=== PATIENT | female | born 1990 | race Caucasian/White ===

== ENCOUNTER 2016-04-10 14:09 | Outpatient (CLI) | payer OTHER ==
[~2016-04-10] VITALS: Ht 165.1 cm; Wt 107.5 kg
--- NOTE | 2016-04-10 15:27 | RADRPT ---
PROCEDURE: US OB biophysical profile. CLINICAL INDICATION: evaluation TECHNIQUE: Multiple sonographic images of the pelvis were obtained. The images were reviewed on a PACS workstation. COMPARISON: No prior studies are available for comparison. FINDINGS: There is a single viable intrauterine gestation. Cardiac activity is present with 157 beats per min tammy. There is a vertex presentation. The placenta is fundal and to the right in location. There is no evidence of placental abruption. There is a normal amount of amniotic fluid with an CHAPARRITA = 11.2 cm. Biophysical profile: movement 2/2 tone 2/2. breathing 2/2 CHAPARRITA 2/2 Total 09/18 RPTAT: AA . IMPRESSION: Normal biophysical profile. Normal CHAPARRITA. Physician Angella Date Time Electronically viewed and signed by Physician Angella on 04/10/2016 15:27 /
[2016-04-10 15:31] LABS: ADD SCAN DIFF NO
[2016-04-10 15:33] LABS: BASOPHILS % 0.3 % (0.0-2.0); EOSINOPHILS # 0.1 10^3/ul (0.0-0.5); EOSINOPHILS % 0.5 % (0.0-7.0); HEMATOCRIT 33.1 % (37.0-47.0); HEMOGLOBIN 10.7 g/dl (12.0-16.0); LYMPHOCYTES # 1.9 10^3/ul (0.8-2.9); MEAN CORPUSCULAR HEMOGLOBIN 26.9 pg (29.0-33.0); MEAN CORPUSCULAR HGB CONC 32.3 g/dl (32.0-37.0); MEAN CORPUSCULAR VOLUME 83.2 fl (82.0-101.0); MEAN PLATELET VOLUME 11.4 fl (7.4-10.4); MONOCYTE # 0.5 10^3/ul (0.3-0.9); MONOCYTES % 4.8 % (0.0-11.0); NEUTROPHIL # 7.5 10^3/ul (1.6-7.5); PLATELET COUNT 257 10^3/UL (140-415); RED BLOOD COUNT 3.98 10^6/ul (4.20-5.40); RED CELL DISTRIBUTION WIDTH 13.1 % (11.5-14.5); WHITE BLOOD COUNT 9.9 10^3/ul (4.8-10.8)
[2016-04-10 15:42] LABS: ADD UMIC YES; URINE BILIRUBIN (Dip) NEGATIVE (NEGATIVE); URINE BLOOD (Dip) NEGATIVE (NEGATIVE); URINE COLOR LT. YELLOW (YELLOW); URINE GLUCOSE (Dip) NEGATIVE (NEGATIVE); URINE KETONES (Dip) NEGATIVE (NEGATIVE); URINE LEUKOCYTE ESTERASE (Dip) NEGATIVE (NEGATIVE); URINE NITRITE (Dip) NEGATIVE (NEGATIVE); URINE TOTAL PROTEIN (Dip) TRACE (NEGATIVE); URINE UROBILINOGEN (Dip) 0.2 E.U./dL (0.1-1.0)
[2016-04-10 16:09] LABS: ALBUMIN 3.3 g/dl (3.3-4.9)
[2016-04-10 16:10] LABS: POTASSIUM 4.1 mmol/L (3.5-5.1)
[2016-04-10 16:12] LABS: ALBUMIN/GLOBULIN RATIO 0.76; BILIRUBIN,INDIRECT 0.3 mg/dl (0-1.1); BILIRUBIN,TOTAL 0.3 mg/dl (0.2-1.3); CREATININE 0.5 mg/dl (0.44-1.00); TOTAL PROTEIN 7.6 g/dl (6.1-8.1)
[2016-04-10 16:13] LABS: CALCIUM 9.1 mg/dl (8.4-10.2); URIC ACID 5.3 mg/dl (3.1-7.9)
[2016-04-10 16:31] LABS: BACTERIA,URINE FEW; SQUAMOUS EPITHELIAL CELL,UR MANY; URINE RBCS 0-2 /HPF (0)
--- NOTE | 2016-04-10 16:45 | TRIAGE ---
OB Triage Datetime Report Generated by CPN: 04/10/2016 16:45 Datetime: 04/10/2016 16:30 Stage of : OB Triage Maternal Assessment Level of Consciousness: Fully Conscious Labor Evaluation Frequency: NONE Monitor Mode: External Resting Tone [place]: Relaxed Heart Rate FHR Baseline Rate: 145 Monitor Mode: External US Variability: Moderate 6-25 bpm Accelerations: 15X15 Decelerations: None Pain Assessment Pain Scale: 0 Pain Presence: None/Denies Pain Type: N/A Pain Goal: 3 Vaginal Exam Membrane Status: Intact Vaginal Bleeding: None Datetime: 04/10/2016 15:30 Stage of : OB Triage Maternal Assessment Level of Consciousness: Fully Conscious Labor Evaluation Frequency: NONE Monitor Mode: External Resting Tone [place]: Relaxed Heart Rate FHR Baseline Rate: 135 Monitor Mode: External US Variability: Moderate 6-25 bpm Accelerations: 15X15 Decelerations: None Pain Assessment Pain Scale: 0 Pain Presence: None/Denies Pain Type: N/A Pain Goal: 3 Vaginal Exam Membrane Status: Intact Vaginal Bleeding: None Datetime: 04/10/2016 14:36 Assessment Type: Triage Maternal Assessment Level of Consciousness: Fully Conscious DTR's/Clonus: DTRs 2+; No Clonus Headache: Denies Blurred Vision: No Respiratory Effort: Unlabored; Regular Rhythm; Equal Expansion Breath Sounds, Left: Clear and Equal Breath Sounds, Right: Clear and Equal Nausea/Vomiting: Denies RUQ Epigastric Pain: Denies Lower Extremities Edema: Bilateral Lower Extremities Degree: 1+ Upper Extremities Edema: None Degree: None Facial Edema: None Fall Risk Assessment History of Falling: (0) No Secondary Diagnosis: (0) No Ambulatory Aid: (0) Bedrest/Nurse Assist IV Therapy: (0) No Gait: (0) Normal/Bedrest/Immobile Mental Status: (0) Oriented to Own Ability Fall Score: 0 Fall Risk Score Definition: No Risk: No action required Datetime: 04/10/2016 14:21 Time of Arrival: 04/10/2016 14:06 EGA: 34.6 Arrived By: Ambulatory Arrived From: Home Chief Complaint: pt sent in for EVAL. OF HBP Movement: Present Contractions: Denies/Absent Rupture of Membranes: Denies Vaginal Bleeding: None Vaginal Discharge: Denies Recent Sexual Intercouse: Yes Abdominal Trauma: Not Applicable Patient Complaints: None Time Provider Notified: 04/10/2016 14:25 Provider Notified: NIKOLAY Initial Plan: MIRTA
[2016-04-10 16:49] VITALS: Ht 165.1 cm; Wt 107.5 kg
[2016-04-10] MEDS ORDERED: PRENAT PO (16:49)
[2016-04-10 16:50] VITALS: BP 120/72; PULSE 86; RESP 18
== END 2016-04-10 16:35 | disposition home or self-care (01) ==
LOC: OBT 14:09 → L-D 14:10 → OBT 16:35
PROVIDERS: ATTEND Obstetrics & Gynecology
DX: O16.3 Unspecified maternal hypertension, third trimester (principal); Z3A.34 34 weeks gestation of pregnancy
CPT/HCPCS: 36415; 76818; 80053; 81001; 84560; 85025; Z7500; 81003; G0463

== ENCOUNTER 2016-04-18 13:58 | Outpatient (CLI) | payer OTHER ==
[~2016-04-18] VITALS: Ht 165.1 cm; Wt 108.7 kg
[~2016-04-18 13:58] MED LIST: PRENAT PO
[2016-04-18] MEDS ORDERED: LACTATED RINGER'S 1,000 ML IV SCH (16:00)
--- NOTE | 2016-04-18 16:41 | RADRPT ---
PROCEDURE: US OB biophysical profile. CLINICAL INDICATION: decreased movements, HBP TECHNIQUE: Multiple sonographic images of the pelvis were obtained. The images were reviewed on a PACS workstation. COMPARISON: 04/10/2016 FINDINGS: There is a single viable intrauterine gestation. Cardiac activity is present with 146 beats per min [place]. There is a vertex presentation. The placenta is posterior fundal. There is no evidence of placental abruption. There is a normal amount of amniotic fluid with an CHAPARRITA = 13.7 cm. Biophysical profile: movement 2/2 tone 2/2. breathing 2/2 CHAPARRITA 2/2 Total 09/18 RPTAT: AA . IMPRESSION: Normal biophysical profile. . .Singh Martinez MD, MD Date Time Electronically viewed and signed by .Singh Martinez MD, MD on 04/18/2016 16:41 .S/
[2016-04-18 16:50] LABS: ADD SCAN DIFF NO
[2016-04-18 16:55] LABS: BASOPHILS % 0.3 % (0.0-2.0); EOSINOPHILS % 0.4 % (0.0-7.0); HEMATOCRIT 31.8 % (37.0-47.0); HEMOGLOBIN 10.2 g/dl (12.0-16.0); LYMPHOCYTES # 1.5 10^3/ul (0.8-2.9); LYMPHOCYTES % 16.5 % (15.0-51.0); MEAN CORPUSCULAR HEMOGLOBIN 26.4 pg (29.0-33.0); MEAN CORPUSCULAR HGB CONC 32.1 g/dl (32.0-37.0); MEAN CORPUSCULAR VOLUME 82.4 fl (82.0-101.0); MEAN PLATELET VOLUME 11.9 fl (7.4-10.4); MONOCYTE # 0.6 10^3/ul (0.3-0.9); MONOCYTES % 6.9 % (0.0-11.0); NEUTROPHILS % 75.4 % (39.0-77.0); PLATELET COUNT 263 10^3/UL (140-415); RED BLOOD COUNT 3.86 10^6/ul (4.20-5.40); WHITE BLOOD COUNT 9.3 10^3/ul (4.8-10.8)
[2016-04-18 16:56] LABS: ALBUMIN 3.2 g/dl (3.3-4.9)
[2016-04-18 16:57] LABS: POTASSIUM 3.9 mmol/L (3.5-5.1)
[2016-04-18 16:59] LABS: ALBUMIN/GLOBULIN RATIO 1.03; BILIRUBIN,INDIRECT 0.2 mg/dl (0-1.1); BILIRUBIN,TOTAL 0.2 mg/dl (0.2-1.3); CREATININE 0.54 mg/dl (0.44-1.00); TOTAL PROTEIN 6.3 g/dl (6.1-8.1)
[2016-04-18 17:00] LABS: CALCIUM 9.4 mg/dl (8.4-10.2)
[2016-04-18 17:13] VITALS: BP 110/70; PULSE 85; RESP 20; Ht 165.1 cm; Wt 108.7 kg
--- NOTE | 2016-04-18 19:21 | TRIAGE ---
OB Triage Datetime Report Generated by CPN: 04/18/2016 19:20 Datetime: 04/18/2016 18:58 Labor Evaluation Frequency: 0 Monitor Mode: External Duration (sec)2399: 0 Quality: Mild Resting Tone [place]: Relaxed Contraction Comments: no uc's noted at this time Heart Rate FHR Baseline Rate: 145 Monitor Mode: External US Variability: Moderate 6-25 bpm Accelerations: 15X15 Decelerations: None Category: Category I Datetime: 04/18/2016 18:04 Labor Evaluation Frequency: 0 Monitor Mode: External Duration (sec)2399: 0 Quality: Mild Resting Tone [place]: Relaxed Contraction Comments: nst reactive for gestational age Monitor Mode: External US Variability: Moderate 6-25 bpm Accelerations: 15X15 Decelerations: None Category: Category I Datetime: 04/18/2016 16:59 Labor Evaluation Frequency: irreg Monitor Mode: External Duration (sec)2399: 60-90 Quality: Mild Resting Tone [place]: Relaxed Heart Rate FHR Baseline Rate: 145 Monitor Mode: External US Variability: Moderate 6-25 bpm Accelerations: 15X15 Decelerations: Variable Category: Category I Datetime: 04/18/2016 16:32 Time of Arrival: 04/18/2016 13:56 EGA: 36.0 Arrived By: Ambulatory Arrived From: Home Chief Complaint: NST, BPP FOR HBP, GDM Movement: Present Contractions: Denies/Absent Rupture of Membranes: Denies Vaginal Bleeding: None Vaginal Discharge: Denies Recent Sexual Intercouse: Denies Abdominal Trauma: Not Applicable Time Provider Notified: 04/18/2016 15:45 Provider Notified: DR. LANCE Initial Plan: A1C, CBC, URIC ACID, IV HYDRATION FOR DECREASED VARIABILITY Datetime: 04/18/2016 15:00 Stage of : OB Triage Assessment Type: Triage Maternal Assessment Level of Consciousness: Fully Conscious DTR's/Clonus: DTRs 2+; No Clonus Headache: Denies Blurred Vision: No Respiratory Effort: Unlabored; Regular Rhythm; Equal Expansion Breath Sounds, Left: Clear and Equal Breath Sounds, Right: Clear and Equal Nausea/Vomiting: Denies RUQ Epigastric Pain: Denies Lower Extremities Edema: Bilateral Lower Extremities Degree: 2+ Upper Extremities Edema: None Degree: None Facial Edema: None Temperature Route: Axillary Fall Risk Assessment History of Falling: (0) No Secondary Diagnosis: (0) No Ambulatory Aid: (0) Bedrest/Nurse Assist IV Therapy: (0) No Gait: (0) Normal/Bedrest/Immobile Mental Status: (0) Oriented to Own Ability Fall Score: 0 Fall Risk Score Definition: No Risk: No action required Datetime: 04/10/2016 14:36 Fall Score: 0 Fall Risk Score Definition: No Risk: No action required Datetime: 04/10/2016 14:21 EGA: 34.6 Initial Plan: EFM, CBC, CMP, UA, URIC ACID
== END 2016-04-18 19:40 | disposition home or self-care (01) ==
LOC: OBT 13:58 → L-D 13:59 → OBT 18:56 → UNDOADMIN 18:57 → L-D 18:57 → OBT 19:40 → UNDODISIN 19:40
PROVIDERS: ATTEND Obstetrics & Gynecology
DX: O24.419 Gestational diabetes mellitus in pregnancy, unspecified control (principal); O36.8130 Decreased fetal movements, third trimester, not applicable or unspecified; Z3A.36 36 weeks gestation of pregnancy
CPT/HCPCS: 36415; 76818; 80053; 83036; 85025; 86850; 86900; 86901; 96360; 96361; J7120; Z7500; G0463

== ENCOUNTER 2016-04-19 07:52 | Inpatient (IN) | payer OTHER ==
--- NOTE | 2016-04-18 23:44 | QN ---
Documentation Comment 25-year-old with IUP at 36 weeks and 1 day with GDM diet-controlled came today for NST. She was noted to have some subtle decelerations and decreased variability while NSTwas being performed. She denied any vaginal bleeding, leaking of fluid or uterine contractions. She had no complaints.. OB history also significant for gestational hypertension but she denied any symptoms of headache, blurred vision or epigastric pain. Her blood pressure while she was in triage and had been observed where between 113-140/ 70s. PE: GA: A&O, NAD Abdomen: Soft, no tenderness, no rebound tenderness, no guarding Fundal height consistent with gestational age After IV hydration improved. Moderate variability seen. after hydration category 1 BPP: 8 out of 8 CHAPARRITA: 13.7 PIH labs: only shows slightly elevated AST. PROCEDURE: US OB biophysical profile. CLINICAL INDICATION: decreased movements, HBP TECHNIQUE: Multiple sonographic images of the pelvis were obtained. The images were reviewed on a PACS workstation. COMPARISON: 04/10/2016 FINDINGS: There is a single viable intrauterine gestation. Cardiac activity is present with 146 beats per minute. There is a vertex presentation. The placenta is posterior fundal. There is no evidence of placental abruption. There is a normal amount of amniotic fluid with an CHAPARRITA = 13.7 cm. Biophysical profile: movement 2/2 tone 2/2. breathing 2/2 CHAPARRITA 2/2 Total 09/18 RPTAT: AA . IMPRESSION: Normal biophysical profile. Assessment: IUP at 36 weeks GDM A1, diet controlled Initally had Cat 2 tracing on NST Advised the patient to be admitted for observation overnight with continuous NST as well as monitoring of blood pressure and possible labs Patient declined to be admitted for observation and signed AMA. Explained to the patient about risks for poor maternal and outcome in case of undetected abnormalities in heart. Also needed more prolonged monitoring due to elevated LFT, can not r/o still preclampsia, Danger to the mother and baby discussed Patient declined stay overnight understanding all above risks and desired to leave AMA. FRANCESCA ROACH MD Apr 18, 2016 23:44
[~2016-04-19] VITALS: Ht 165.1 cm; Wt 109.0 kg
[2016-04-19 08:13] VITALS: Ht 165.1 cm; Wt 109.0 kg
[2016-04-19] MEDS ORDERED: DEXTROSE 5%-LR 1,000 ML IV SCH (09:03)
[2016-04-19] MEDS ORDERED: LACTATED RINGER'S 1,000 ML IV SCH ×3 (09:03→10:52)
[2016-04-19] MEDS ORDERED: CARBOPROST 250 MCG INJ IM PRN ×2 (09:30→11:00)
[2016-04-19] MEDS ORDERED: BUTORPHANOL 2 MG INJ IV PRN ×2 (09:30)
[2016-04-19] MEDS ORDERED: LACTATED RINGER'S 1,000 ML IV PRN (09:30)
[2016-04-19] MEDS ORDERED: LIDOCAINE 1% (MPF) 30 ML INJ INJ PRN (09:30)
[2016-04-19] MEDS ORDERED: METHYLERGONOVINE 0.2 MG INJ IM PRN ×2 (09:30→11:00)
[2016-04-19] MEDS ORDERED: MISOPROSTOL 200 MCG TAB PR PRN ×2 (09:30→11:00)
[2016-04-19] MEDS ORDERED: OXYTOCIN 30 UNITS/LR 500 ML IV PRN ×2 (09:30→11:00)
[2016-04-19] MEDS ORDERED: AMPICILLIN 2 GM/NS (PMX) 100 ML IV ONE ×2 (09:30→11:00)
[2016-04-19 10:20] LABS: ADD SCAN DIFF NO
[2016-04-19 10:26] LABS: BASOPHIL # 0.1 10^3/ul (0.0-0.1); BASOPHILS % 0.5 % (0.0-2.0); EOSINOPHILS # 0.1 10^3/ul (0.0-0.5); EOSINOPHILS % 0.5 % (0.0-7.0); HEMATOCRIT 35.7 % (37.0-47.0); HEMOGLOBIN 11.4 g/dl (12.0-16.0); LYMPHOCYTES # 2.3 10^3/ul (0.8-2.9); LYMPHOCYTES % 21.9 % (15.0-51.0); MEAN CORPUSCULAR HEMOGLOBIN 26.4 pg (29.0-33.0); MEAN CORPUSCULAR HGB CONC 31.9 g/dl (32.0-37.0); MEAN CORPUSCULAR VOLUME 82.6 fl (82.0-101.0); MEAN PLATELET VOLUME 11.5 fl (7.4-10.4); MONOCYTE # 0.6 10^3/ul (0.3-0.9); MONOCYTES % 5.9 % (0.0-11.0); NEUTROPHIL # 7.5 10^3/ul (1.6-7.5); NEUTROPHILS % 70.7 % (39.0-77.0); PLATELET COUNT 266 10^3/UL (140-415); RED BLOOD COUNT 4.32 10^6/ul (4.20-5.40); RED CELL DISTRIBUTION WIDTH 12.9 % (11.5-14.5); WHITE BLOOD COUNT 10.6 10^3/ul (4.8-10.8)
[2016-04-19 10:35] LABS: INR 0.94; PROTIME 12.6 Sec (12.2-14.2)
[2016-04-19 10:36] LABS: PARTIAL THROMBOPLASTIN TIME 26.4 Sec (25.0-35.0)
--- NOTE | 2016-04-19 10:38 | PREOPHP ---
DATE OF ADMISSION: 04/19/2016 HISTORY OF PRESENT ILLNESS: Ms. Sondra López is a 25-year-old 3, para 1, EDC 05/16/2016, intra uterine at 36 weeks and 4 days gestational age, presented to triage this morning complaini ng of leaking fluids and regular contractions. She also has a history of GDM A2. However, patient reports that she is currently not taking any medications for her diabetes. COURSE: Her care took place at [facility]. PAST MEDICAL HISTORY: None. MEDICATIONS: vitamins. PAST SURGICAL HISTORY: None. OBSTETRICAL HISTORY: Times 1 vaginal delivery, 1 missed AB around 18 weeks gestational age. GYNECOLOGIC HISTORY: 10, regular 3 to 4 days. Denies any sexually transmitted diseases. Sexually active with 1 partner. SOCIAL HISTORY: Denies any smoking, drugs or alcohol. FAMILY HISTORY: None. PHYSICAL EXAMINATION: PELVIC: 7 to 8 cm dilated, 90% effaced, -1 station. Spontaneous rupture of membranes. heart tracing category 1. Tocometer regular contractions. ASSESSMENT: A 25-year-old 3, para 1, intrauterine at 36 weeks' gestational age, p reterm labor, spontaneous rupture of membranes, GDM A2. PLAN: Expected vaginal delivery. GBS prophylaxis. Dictated By: JEAN-CLAUDE DAWSON/EMY Conf#: [id number] DID#: [id number]
[2016-04-19 10:52] LABS: GLUCOSE 106 mg/dl (70-220)
--- NOTE | 2016-04-19 10:58 | LDN ---
Date/Time of Note Date/Time of Note DATE: 04/19/16 TIME: 10:57 Delivery Summary Placenta Delivered: Spontaneously Meconium: none Perineum intact?: Yes Perineal laceration repair: 1st degree vaginal laceration repair with 2-0 chromic Anesthesia type: Local Estimated blood loss: 200 Sponge & Needle done & correct: Yes All needle counts correct: Yes Any foreign bodies felt in the: No Problems: Delivery Information Sex Infant Sex: female Apgars 1 Minute: 8 5 Minute: 9 Suctioning Nose & mouth suctioned at nicolás: No Delee suction performed: No Umbilical Cord Umbilical cord with: 3 Vessels Cord presentations: no nuchal cord Cord Blood was obtained: Yes JEAN-CLAUDE LINK MD Apr 19, 2016 10:58
[2016-04-19] MEDS ORDERED: DIBUCAINE 1% 30 GM OINT TOP PRN (11:00)
[2016-04-19] MEDS ORDERED: ACETAMINOPHEN 325 MG TAB PO PRN (11:00)
[2016-04-19] MEDS ORDERED: IBUPROFEN 600 MG TAB PO PRN (11:00)
[2016-04-19] MEDS ORDERED: WITCH HAZEL/GLYCERIN PAD PR PRN (11:00)
[2016-04-19] MEDS ORDERED: OXYCODONE/ASPIRIN (4.88/325) TAB PO PRN ×2 (11:00)
[2016-04-19] MEDS ORDERED: LANOLIN 7 GM TUBE TOP PRN (11:00)
[2016-04-19] MEDS ORDERED: OXYTOCIN 30 UNITS/LR 500 ML IV SCH ×2 (11:00)
[2016-04-19] MEDS ORDERED: SENNA/DOCUSATE NA (8.6MG/50MG) TAB PO PRN (11:00)
[2016-04-19] MEDS ORDERED: BENZOCAINE 20% 56 ML SPRAY TOP PRN (11:00)
[2016-04-19] MEDS ORDERED: ONDANSETRON 4 MG INJ IV PRN (11:00)
[2016-04-19] MEDS ORDERED: OXYTOCIN 30 UNITS/LR 500 ML IVPB ONE (11:30)
[2016-04-19] MEDS: OXYTOCIN 30 UNITS/LR 500 ML IV SCH ×4 (11:58→23:30)
[2016-04-19 12:45] VITALS: BP 123/69; RESP 19
[2016-04-19] MEDS ORDERED: AMPICILLIN 1 GM/NS (PMX) 50 ML IV SCH (13:30)
[2016-04-19 13:45] VITALS: BP 117/67; RESP 18
[2016-04-19] MEDS: IBUPROFEN 600 MG TAB PO SCH ×3 (13:46→23:48)
[2016-04-19] MEDS: ACCUCHECK XX SCH ×2 (13:47→20:18)
[2016-04-19 16:00] VITALS: BP 119/79; RESP 18
[2016-04-19 20:00] VITALS: BP 134/82; PULSE 98; RESP 18
[2016-04-19] MEDS: LACTATED RINGER'S 1,000 ML IV* SCH (20:29)
[2016-04-19] MEDS: SENNA/DOCUSATE NA (8.6MG/50MG) TAB PO SCH (21:01)
[2016-04-19 23:40] VITALS: BP 109/61; PULSE 85; RESP 16
[2016-04-20] MEDS: LACTATED RINGER'S 1,000 ML IV* SCH ×2 (02:58→10:58)
[2016-04-20] MEDS: OXYTOCIN 30 UNITS/LR 500 ML IV SCH ×4 (03:30→15:30)
[2016-04-20 03:50] VITALS: BP 104/61; PULSE 88; RESP 18
[2016-04-20] MEDS: IBUPROFEN 600 MG TAB PO SCH ×4 (06:18→23:39)
[2016-04-20 06:54] LABS: ADD SCAN DIFF NO
[2016-04-20 07:02] LABS: BASOPHILS % 0.4 % (0.0-2.0); EOSINOPHILS # 0.1 10^3/ul (0.0-0.5); EOSINOPHILS % 1.1 % (0.0-7.0); HEMATOCRIT 27.1 % (37.0-47.0); HEMOGLOBIN 8.6 g/dl (12.0-16.0); LYMPHOCYTES # 2.2 10^3/ul (0.8-2.9); LYMPHOCYTES % 26.4 % (15.0-51.0); MEAN CORPUSCULAR HEMOGLOBIN 26.6 pg (29.0-33.0); MEAN CORPUSCULAR HGB CONC 31.7 g/dl (32.0-37.0); MEAN CORPUSCULAR VOLUME 83.9 fl (82.0-101.0); MEAN PLATELET VOLUME 11.9 fl (7.4-10.4); MONOCYTE # 0.5 10^3/ul (0.3-0.9); MONOCYTES % 5.8 % (0.0-11.0); NEUTROPHIL # 5.6 10^3/ul (1.6-7.5); NEUTROPHILS % 65.7 % (39.0-77.0); PLATELET COUNT 207 10^3/UL (140-415); RED BLOOD COUNT 3.23 10^6/ul (4.20-5.40); RED CELL DISTRIBUTION WIDTH 13.2 % (11.5-14.5); WHITE BLOOD COUNT 8.5 10^3/ul (4.8-10.8)
[2016-04-20] MEDS: ACCUCHECK XX SCH ×4 (07:30→20:05)
[2016-04-20 08:30] VITALS: BP 115/68; PULSE 78; RESP 18
[2016-04-20] MEDS: SENNA/DOCUSATE NA (8.6MG/50MG) TAB PO SCH ×2 (12:58→21:18)
[2016-04-20 16:00] VITALS: BP 117/66; PULSE 80; RESP 18
[2016-04-20 20:00] VITALS: BP 123/73; PULSE 86; RESP 18
--- NOTE | 2016-04-20 20:07 | QN ---
Documentation Comment patient seen and evaluated no complaints vs stable ab uterine fundus firm no distention extremity no edema no calf tenderness a/ sp vaginal delivery ppd 1 stable p/ iron supplement JEAN-CLAUDE LINK MD Apr 20, 2016 20:06
[2016-04-20] MEDS: FERROUS SULFATE (EC) 325 MG TAB PO SCH (21:18)
[2016-04-21 04:00] VITALS: BP 103/67; PULSE 81; RESP 18
[2016-04-21] MEDS: IBUPROFEN 600 MG TAB PO SCH ×2 (05:37→12:00)
[2016-04-21] MEDS: ACCUCHECK XX SCH ×3 (07:30→13:50)
[2016-04-21 08:00] VITALS: BP 126/62; PULSE 98; RESP 18
[2016-04-21] MEDS: FERROUS SULFATE (EC) 325 MG TAB PO SCH (09:17)
[2016-04-21] MEDS: SENNA/DOCUSATE NA (8.6MG/50MG) TAB PO SCH (09:17)
--- NOTE | 2016-04-21 10:51 | PD.PPDC ---
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
--- NOTE | 2016-04-21 10:54 | DS ---
Date/Time of Note Date/Time of Note DATE: 04/21/16 TIME: 10:52 Obstetrical Discharge Record Final Diagnosis Final Diagnosis: Term delivered Vaginal Delivery Obstetrical Delivery: Spontaneous Condition on Discharge Physical Assessment Last Vitals: ,Vital signs are stable, abdomen soft uterus firm lochia normal extremity normal patient discharged home with follow-up instruction to be seen at the clinic in 2 weeks Laboratory Tests Test 04/20/16 15:33 04/20/16 20:01 04/21/16 10:29 Bedside Glucose 115mg/dL 164mg/dL 168mg/dL Current Medications Medications (Trade) Dose Ordered Sig/Nathan Route PRN Reason Start Time Stop Time Status Last Admin Dose Admin Lactated Ringer's 1,000 ml @ 125 mls/hr Q8H IV 04/19/16 09:03 UNV Lactated Ringer's 1,000 ml @ 125 mls/hr Q8H IV 04/19/16 09:03 04/19/16 11:02 DC 04/19/16 09:31 Dextrose/Lactated Ringer's 1,000 ml @ 125 mls/hr Q8H IV 04/19/16 09:03 04/19/16 11:02 DC Ampicillin 100 ml @ 100 mls/hr ONCE ONCE IV 04/19/16 09:30 04/19/16 10:29 DC 04/19/16 09:31 Ampicillin (Ampicillin 1 Gm/ NS (Pmx)) 50 ml @ 100 mls/hr Q4H IV 04/19/16 13:30 04/19/16 13:30 DC Butorphanol Tartrate (Stadol) 1 mg Q2H PRN IV PAIN 04/19/16 09:30 04/19/16 11:02 DC 04/19/16 10:41 Butorphanol Tartrate (Stadol) 2 mg Q2H PRN IV PAIN 04/19/16 09:30 04/19/16 11:02 DC Lidocaine 30 ml 30 ml ONCE PRN INJ EPISIOTOMY/TEARING 04/19/16 09:30 04/19/16 11:02 DC Lactated Ringer's 1,000 ml @ 2,000 mls/hr Q30M PRN IV PRE-EPIDURAL BOLUS 04/19/16 09:30 04/19/16 11:02 DC Oxytocin/Lactated Ringer's 500 ml @ 0 mls/hr ONCE PRN IV For Hemorrhage Management 04/19/16 09:30 04/19/16 11:02 DC Methylergonovine Maleate (Methergine) 0.2 mg ONCE PRN IM VAGINAL BLEEDING 04/19/16 09:30 04/19/16 11:01 DC Carboprost Tromethamine (Hemabate) 250 mcg ONCE PRN IM VAGINAL BLEEDING 04/19/16 09:30 04/19/16 11:02 DC Misoprostol 1000 mcg 1,000 mcg ONCE PRN [place] VAGINAL BLEEDING 04/19/16 09:30 04/19/16 11:02 DC Lactated Ringer's 1,000 ml @ 125 mls/hr Q8H IV 04/19/16 10:52 04/19/16 11:01 DC Ampicillin 100 ml @ 100 mls/hr ONCE ONCE IV 04/19/16 11:00 04/19/16 11:01 DC Oxytocin/Lactated Ringer's 500 ml @ 125 mls/hr ONCE -MAY REPEAT X1 IV 04/19/16 11:00 04/19/16 11:01 DC Oxytocin/Lactated Ringer's 500 ml @ 125 mls/hr ONCE IV 04/19/16 11:00 04/19/16 11:01 DC Ibuprofen 600 mg 600 mg ONCE PRN PO Mild Pain (Pain Score 1-3) 04/19/16 11:00 04/19/16 11:01 DC Lactated Ringer's (Lr) 1,000 ml @ 125 mls/hr Q8H IV* 04/19/16 10:58 04/20/16 17:29 DC 04/19/16 20:29 Ibuprofen (Motrin) 600 mg Q6 PO 04/19/16 12:00 04/21/16 05:37 Oxycodone/Aspirin (Percodan) 1 tab Q3H PRN PO PAIN LEVEL 1-5 04/19/16 11:00 Oxycodone/Aspirin (Percodan) 2 tab Q3H PRN PO PAIN LEVEL 6-10 04/19/16 11:00 Ondansetron HCl (Zofran Inj) 4 mg Q6H PRN IV NAUSEA AND/OR VOMITING 04/19/16 11:00 Senna/Docusate Sodium (Senokot-S) 1 tab BID PO 04/19/16 21:00 04/21/16 09:17 Senna/Docusate Sodium (Senokot-S) 1 tab BID PRN PO CONSTIPATION 04/19/16 11:00 Witch Kenyatta/ Glycerin (Tucks Pads) 1 pad BEDSIDE MEDICATION PRN AK HEMORRHOID/EPISIOTMY PAIN 04/19/16 11:00 04/19/16 13:46 Benzocaine (Dermoplast [place]) 1 spray BEDSIDE MEDICATION PRN TOP HEMORRHOID/EPISIOTMY PAIN 04/19/16 11:00 04/19/16 13:47 Dibucaine (Nupercainal) 1 applic BEDSIDE MEDICATION PRN TOP HEMORRHOID/EPISIOTMY PAIN 04/19/16 11:00 Lanolin (Dyx-A-Mrlcvr) 1 applic BEDSIDE MEDICATION PRN TOP BEDSIDE FOR MARGUERITE TO NIPPLES 04/19/16 11:00 04/19/16 13:46 Acetaminophen 650 mg 650 mg Q4H PRN PO ELEVATED TEMPERATURE 04/19/16 11:00 Oxytocin/Lactated Ringer's 500 ml @ 0 mls/hr ONCE PRN IV For Hemorrhage Management 04/19/16 11:00 Methylergonovine Maleate (Methergine) 0.2 mg ONCE PRN IM VAGINAL BLEEDING 04/19/16 11:00 Carboprost Tromethamine (Hemabate) 250 mcg ONCE PRN IM VAGINAL BLEEDING 04/19/16 11:00 Misoprostol (Cytotec) 1,000 mcg ONCE PRN [place] VAGINAL BLEEDING 04/19/16 11:00 Diagnostic Test (Pha) 1 ea 1 ea FBSPP XX 04/19/16 13:30 04/19/16 20:18 Oxytocin/Lactated Ringer's 500 ml @ 125 mls/hr ONCE ONCE IVPB 04/19/16 11:30 04/19/16 15:29 DC 04/19/16 10:47 Oxytocin/Lactated Ringer's 500 ml @ 125 mls/hr Q4H IV 04/19/16 11:30 04/20/16 17:29 DC 04/19/16 16:32 Ferrous Sulfate (Ferrous Sulfate (Ec)) 325 mg BID PO 04/20/16 21:00 04/21/16 09:17 Voiding: Yes Bowel Movement: Yes Breast: Soft, non-tender, Filling Fundus: Firm Calf Tenderness: No Patient Condition: Good ROMAINE BURROUGHS MD Apr 21, 2016 10:53
== END 2016-04-21 15:55 | disposition home or self-care (01) | DRG 775 ==
LOC: OBT 07:52 → L-D 07:53 → OBT 08:57 → L-D 09:00 → PP1 12:32
PROVIDERS: ADMIT Obstetrics & Gynecology; ATTEND Obstetrics & Gynecology
PROC: 10E0XZZ Delivery of Products of Conception, External Approach (ICD-10-PCS; principal; 2016-04-19)
PROC: 0HQ9XZZ Repair Perineum Skin, External Approach (ICD-10-PCS; 2016-04-19)
DX: O60.14X0 Preterm labor third trimester with preterm delivery third trimester, not applicable or unspecified (principal); O24.429 Gestational diabetes mellitus in childbirth, unspecified control; O42.913 Preterm premature rupture of membranes, unspecified as to length of time between rupture and onset of labor, third trimester; O70.0 First degree perineal laceration during delivery; Z3A.36 36 weeks gestation of pregnancy; Z37.0 Single live birth
CPT/HCPCS: 82947; 82962; 84112; 85025; 85610; 85730; 86592; 87340; 99464; A4310; G0463; J0290; J2590; J7120; J7121